=== PATIENT | male | born 1975 | race Hispanic/Latino ===

== ENCOUNTER 2017-06-19 15:34 | Emergency (ER) | payer MEDICAID ==
[2017-06-19 15:42] VITALS: BP 129/78; PULSE 81; RESP 16; TEMP 98.3; O2SAT 99
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
--- NOTE | 2017-06-19 18:01 | RAD ---
PROCEDURE: Radiographs of the left humerus. HISTORY: left elbow pain, fall COMPARISON: None. FINDINGS: BONES: Normal. No fracture or focal lesion. SOFT TISSUES: Normal. OTHER FINDINGS: None. IMPRESSION: Normal radiographs of left humerus.
--- NOTE | 2017-06-19 18:01 | RAD ---
PROCEDURE: Radiographs of the left elbow. HISTORY: pain after fall COMPARISON: No prior. FINDINGS: BONES: Normal. No fracture. JOINTS: Normal. No osteoarthritis. SOFT TISSUES: Normal. JOINT EFFUSION: None. OTHER FINDINGS: None IMPRESSION: Unremarkable radiographs of the left elbow.
== END 2017-06-19 17:46 | disposition home or self-care (01) ==
LOC: H.ER 15:34
DX: S59.912A Unspecified injury of left forearm, initial encounter (principal); W19.XXXA Unspecified fall, initial encounter; Y92.89 Other specified places as the place of occurrence of the external cause; F43.10 Post-traumatic stress disorder, unspecified